=== PATIENT | female | born 1970 | race Caucasian/White ===

== ENCOUNTER 2022-01-27 00:36 | Day surgery (SDC) | payer OTHER, SELFPAY ==
[2022-01-20 12:11] VITALS: BMI 37.1
[2022-01-27 06:36] VITALS: BP 123/77; PULSE 95; RESP 18; TEMP 36.8; O2SAT 98
[2022-01-27] MEDS: LACTATED RINGERS 1,000 ML 150 ML IV CONT (06:47)
--- NOTE | 2022-01-27 06:55 | WPDANESEPPF ---
Anes - Initial Pre Proc Eval Procedure: Operation Date: 01/27/22 07:30 Proposed Procedures p Screening Colonoscopy - Mehran Torres MD Date/Time: 01/27/22 06:55 Surgeon: Mehran Torres MD Pre Op Diagnosis: neoplasm screening Patient Data Age: 51 Gender: F Height: 1.68 m Weight: 115.6 kg Last Vital Signs Temp 36.8 C 01/27/22 06:36 Pulse 95 01/27/22 06:36 Resp 18 01/27/22 06:36 BP 123/77 01/27/22 06:36 Pulse Ox 98 01/27/22 06:36 Allergies Allergy/AdvReac Type Severity Reaction Status Date / Time ? PAIN MED AFTER GALL Allergy Mild ITCHING Uncoded 01/27/22 06:29 BLADDER SURGERY Home Medications Medication Instructions Recorded Confirmed Type duloxetine 60 mg PO DAILY 01/20/22 01/27/22 History Patient hx anesthesia problems: none Family hx anesthesia problems: none Results Review: All pre-operative results and documents have been reviewed as part of the pre-operative evaluation. [facility] Past Medical History Medical History (Updated 01/27/22 @ 06:55 by Nilesh Gomez MD) Morbid obesity Surgical History Surgical History (Updated 01/27/22 @ 06:57 by Nilesh Gomez MD) History of cholecystectomy Social History Social History Smoking packs per day: 1 Smoking cigarettes per day: 20.0 Years smoked: 20 Smoking pack-years: 20.00 Smoking status: Current every day smoker Alcohol intake: current Alcohol use details: occasional social Substance use: never Substance use type: does not use Living arrangements: alone Spiritual care concerns: No Anes - Eval Final PreProcedure Day of Procedure 01/27/22 06:55 Patient weight: morbidly obese Heart: regular rate and rhythm Lungs: clear to auscultation Airway: Mallampati scale class II Neurological: alert and oriented Last oral intake: >/= 8 hours ASA classification: III Emergent: no Anesthetic plan: proceed Anesthesia type and monitoring: general GIVS and standard monitoring Results Review: All pre-operative results and documents have been reviewed as part of the pre-operative evaluation. Informed Consent: The patient's anesthetic plan and its attendant risks and benefits were discussed with the patient/family/POA. Questions were solicited and answers provided to the satisfaction of the patient/family/POA.
--- NOTE | 2022-01-27 07:10 | PM.HPGS ---
History of Present Illness History of Present Illness Consent: Risks, benefits, and alternatives have been discussed and questions answered. Patient agrees to proceed with procedure. Chief complaint: neoplasm screening Narrative: Dottie Haskins is a 51 year old female here for screening colonoscopy, she had one in 2002 because abdominal pain Review of Systems Constitutional: Constitutional: Denies headache(s) and Denies weakness Eyes: Eyes: Denies blurry vision ENT: Reports Normal hearing present, Denies headache(s) and Denies neck pain Cardiovascular: Cardiovascular: Denies chest pain and Denies dyspnea Respiratory: Respiratory: Denies dyspnea Gastrointestinal: Gastrointestinal: Reports no additional gastrointestinal complaints Genitourinary: Genitourinary: Denies dysuria Musculoskeletal: Musculoskeletal: Denies neck pain Integumentary/Breasts: Skin/Breast: Denies dry skin Neurologic: Reports Normal hearing present, Denies headache(s) and Denies weakness Psychiatric: Psychiatric: Denies anxiety Endocrine: Endocrine: Denies change in body appearance Hematologic/Lymphatic: Hematologic/Lymphatic: Denies easy bleeding Allergic/Immunologic: Allergic/Immunologic: Denies urticaria PMFSH Past Medical History Medical History (Updated 01/27/22 @ 07:11 by Mehran Torrse MD) Colon cancer screening Morbid obesity Surgical History Surgical History (Updated 01/27/22 @ 06:57 by Nilesh Gomez MD) History of cholecystectomy Social History Social History Smoking packs per day: 1 Smoking cigarettes per day: 20.0 Years smoked: 20 Smoking pack-years: 20.00 Smoking status: Current every day smoker Alcohol intake: current Alcohol use details: occasional social Substance use: never Substance use type: does not use Living arrangements: alone Spiritual care concerns: No Meds Home Medications and Allergies Home Medications Medication Instructions Recorded Confirmed Type duloxetine 60 mg PO DAILY 01/20/22 01/27/22 History Allergies Allergy/AdvReac Type Severity Reaction Status Date / Time ? PAIN MED AFTER GALL Allergy Mild ITCHING Uncoded 01/27/22 06:29 BLADDER SURGERY Vital Signs Vital Signs - 24 hr 01/27/22 06:36 Temperature 98.2 F Pulse Rate 95 Respiratory Rate 18 Blood Pressure 123/77 Pulse Oximetry 98 Exam Const: General: comfortable and no acute distress HENMT: General nose exam: Normal nares present Eyes: General: appearance normal, both eyes and all related structures Neck: Neck: no JVD Resp: Auscultation: clear to auscultation bilaterally Cardio: Rate: regular rate Rhythm: regular rhythm GI: Inspection: non-distended GI Palp: Yes Soft to palpation Skin: General skin exam: normal color Neuro: General: gait normal Speech: normal speech Extrem: General: normal to inspection Psych: Mental Status: mental status grossly normal Assessment and Plan Assessment and plan (1) Colon cancer screening: Code(s): Z12.11 - Encounter for screening for malignant neoplasm of colon Status: Acute Assessment and Plan: colonoscopy
[2022-01-27 07:42] VITALS: BP 114/75; PULSE 75; RESP 16; O2SAT 100
[2022-01-27 07:52] VITALS: BP 123/83; PULSE 75; RESP 23; O2SAT 100
[2022-01-27 08:02] VITALS: BP 134/86; PULSE 73; RESP 21; O2SAT 100
== END 2022-01-27 08:10 | disposition home or self-care (01) ==
PROVIDERS: PCP Emergency Medicine; Visit Provider Internal Medicine Gastroenterology
PROC: 0DJD8ZZ Inspection of Lower Intestinal Tract, Via Natural or Artificial Opening Endoscopic (ICD-10-PCS; CPT 45378; principal; 2022-01-27 07:30)
DX: Z12.11 Encounter for screening for malignant neoplasm of colon (principal); K64.8 Other hemorrhoids; F17.210 Nicotine dependence, cigarettes, uncomplicated; E66.01 Morbid (severe) obesity due to excess calories; Z68.41 Body mass index [BMI] 40.0-44.9, adult
CPT/HCPCS: 45378; J2704; J7120

== ENCOUNTER 2022-11-30 19:34 | Emergency (ER) | payer OTHER, SELFPAY ==
--- NOTE | ~2022-11-30 | CT_ITS ---
EXAMINATION: CT brain wo con INDICATION: Headache COMPARISON: None TECHNIQUE: Standard unenhanced head CT. The dose-length product (DLP) was 605.33 mGy-cm. The mA was a djusted according to patient size. Iterative reconstruction technique was employed. FINDINGS: There is no intracranial hemorrhage, acute infarction, or abnormal mass lesion. The ventric les are normal. There is no abnormal mass effect or midline shift. The quinn-white matter differentiat ion is normal. The basal cisterns are patent. The orbits are normal. The paranasal sinuses, mastoids and calvarium are normal. IMPRESSION: 1. No acute intracranial abnormality. Reviewed, dictated and finalized at location F. OMER SERVICE OFFICER
--- NOTE | ~2022-11-30 | CT_ITS ---
EXAMINATION: CT cervical spine wo con DATE: 11/30/2022 22:23 INDICATION: Neck pain TECHNIQUE: Computed tomography (CT) of the cervical spine was performed without intravenous contrast. The dose-length product (DLP) was 515.95 mGy-cm. Automated exposure control and iterative reconstruc tion technique were employed. COMPARISON: None FINDINGS: No fracture, dislocation, or subluxation. The vertebral body heights are maintained. There is mild loss of intervertebral disc space height at C5-C6. The odontoid process is intact. Small dege nerative osteophytes project from the anterior endplates of multiple vertebral bodies. There is multi level moderate facet and uncovertebral joint osteoarthritis. IMPRESSION: 1. Mild cervical spondylosis without acute findings. Reviewed, dictated and finalized at location F. D COORDINATOR
--- NOTE | ~2022-11-30 | XR_ITS ---
EXAMINATION: XR knee LT min 4V DATE: 11/30/2022 22:13 INDICATION: Left knee pain TECHNIQUE: Four views of the left knee were obtained. COMPARISON: None. FINDINGS: Alignment is normal. No fracture or osteochondral lesion. There is mild tricompartmental os teoarthritis characterized by tiny marginal osteophytes. No joint effusion/synovitis. Soft tissues a re unremarkable. IMPRESSION: 1. No acute osseous abnormality. Reviewed, dictated and finalized at location F. R CUTTER OUT
[2022-11-30 19:45] VITALS: BP 149/82; PULSE 73; RESP 17; TEMP 36.4; O2SAT 99
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
[2022-11-30] MEDS: CYCLOBENZAPRINE HCL 10 MG TABLET PO (22:11)
[2022-11-30] MEDS: IBUPROFEN 600 MG TABLET PO (22:11)
[2022-11-30 23:33] VITALS: BP 138/87; PULSE 87; RESP 18; O2SAT 98
== END 2022-11-30 23:34 | disposition home or self-care (01) ==
PROVIDERS: Emergency Provider Physician Assistant; PCP Emergency Medicine
DX: S80.02XA Contusion of left knee, initial encounter (principal); V49.50XA Passenger injured in collision with unspecified motor vehicles in traffic accident, initial encounter; M47.812 Spondylosis without myelopathy or radiculopathy, cervical region; F17.210 Nicotine dependence, cigarettes, uncomplicated
CPT/HCPCS: 70450; 72125; 73564; 99284; A9270

== ENCOUNTER 2023-12-10 15:27 | Outpatient (CLI) | payer OTHER, SELFPAY ==
--- NOTE | ~2023-12-10 | XR_ITS ---
Lumbosacral Spine: AP and lateral views Clinical History: Pain Findings: The normal lordotic curve is maintained. The vertebral bodies and posterior elements are i ntact. The intervertebral disc spaces are preserved. Moderate to advanced facet arthropathy present throughout the lumbar spine. The sacroiliac joints are normally outlined. Impression: Moderate to advanced facet arthropathy throughout the lumbar spine. Reviewed, dictated and finalized at location . Impression: Moderate to advanced facet arthropathy throughout the lumbar spine.
== END 2023-12-10 15:28 ==
PROVIDERS: PCP Emergency Medicine; Visit Provider Emergency Medicine
DX: M54.9 Dorsalgia, unspecified (principal)
CPT/HCPCS: 72100

== ENCOUNTER 2025-03-18 08:34 | Outpatient (CLI) | payer OTHER, SELFPAY ==
--- NOTE | ~2025-03-18 | CT_ITS ---
CT Scan of the Chest without Contrast: Clinical Indication: Lung cancer screening, nicotine dependence Technique: Contiguous sections were acquired throughout the chest without intravenous contrast. Dose reduction technique was used on this scan by utilizing automated exposure control and iterative recon struction technique. The dose-length product (DLP) was 186.06 mGy-cm. Findings: There is no evidence of any significant mediastinal, hilar or axillary lymphadenopathy. The mediastin al soft tissues appear normal. There is no evidence of pleural or pericardial effusion. The lungs are clear. No pulmonary nodules or infiltrates are noted. Images through the upper abdomen reveal no abnormalities. Impression: Lung RADS 1: Negative. 12 month follow-up screening CT advised. Reviewed, dictated and finalized at location . Impression: Lung RADS 1: Negative. 12 month follow-up screening CT advised.
== END 2025-03-18 08:35 | disposition home or self-care (01) ==
PROVIDERS: PCP Emergency Medicine; Visit Provider Emergency Medicine
DX: Z12.2 Encounter for screening for malignant neoplasm of respiratory organs (principal); Z87.891 Personal history of nicotine dependence
CPT/HCPCS: 71271